=== PATIENT | male | born 1950 | race Caucasian/White ===

== ENCOUNTER 2018-07-18 15:37 | Inpatient (IN) | payer OTHER ==
[~2018-07-18] VITALS: Ht 175.3 cm; Wt 44.9 kg
[2018-07-18 15:40] VITALS: BP 90/54
--- NOTE | 2018-07-18 15:40 | NUR ---
PT BIBA TO BED 11
--- NOTE | 2018-07-18 15:50 | NUR ---
xray at bedside
--- NOTE | 2018-07-18 16:00 | NUR ---
67 YO M BIBA BLS CARE W/ C/O HEMOPTYSIS X 2 DAYS, SPUTUM SAMPLE AT BEDSIDE. LUNG SOUNDS COARSE AND DIMINISHED BILAT. W/ CRACKLES BL BASES. 91-93%% ON RA. DENIES CP, SOB, NVD. DENIES PAIN. PT STATES THAT WHEN HE COUGHS DEEPLY, THAT IS WHEN HE HAS TO SPIT THE BLOOD INTO A TISSUE OR CUP. PT DENIES PAIN. PT STATES THAT THIS MAY HAVE HAPPENED BEFORE W/ DX HIV. AAOX4, GCS 15, CMS INTACT. PT WEARS DIAPERS, HAS LEFT LEG AMPUTATION. ABD SOFT, NON-TENDER. LAST BM LESS THAN 1 HOUR AGO, DENIES ANY ISSUES W/ URINE/BM. ER MD NOTIFIED OF PT STATUS. PT NEEDS MET, SAFETY PRECAUTIONS IN PLACE. WILL CONTINUE TO MONITOR.
--- NOTE | 2018-07-18 16:04 | NUR ---
spoke to the nurse from the facility that sent the pt over and eceived report.
[2018-07-18] MEDS ORDERED: FURO-570 PO (16:28)
[2018-07-18] MEDS ORDERED: [UNRECOGNIZED DRUG - CODE] PO (16:28)
[2018-07-18] MEDS ORDERED: MULT15LI1 GT (16:28)
[2018-07-18] MEDS ORDERED: FERR325E14 PO (16:28)
[2018-07-18] MEDS ORDERED: FINA5TAB1 PO (16:28)
[2018-07-18] MEDS ORDERED: DRON2.5S4 PO (16:28)
[2018-07-18] MEDS ORDERED: INSU100S45 SUBQ (16:28)
[2018-07-18] MEDS ORDERED: LACT10SO1 PO (16:28)
[2018-07-18] MEDS ORDERED: SULF-59 PO (16:28)
[2018-07-18] MEDS ORDERED: TRAZ-343 PO (16:28)
[2018-07-18] MEDS ORDERED: QUET25TA PO (16:28)
[2018-07-18] MEDS ORDERED: POTA10TE30 PO (16:28)
[2018-07-18] MEDS ORDERED: ABAC1TAB2 PO (16:28)
[2018-07-18] MEDS ORDERED: GABA100C PO (16:28)
[2018-07-18] MEDS ORDERED: DOCU250S85 PO (16:28)
[2018-07-18] MEDS ORDERED: ALBU3SOL83 IH (16:28)
--- NOTE | 2018-07-18 17:09 | NUR ---
pt providing urine sample at this time via bedside urinal. safety precautions in place. will conitnue to monitor.
[2018-07-18 17:18] LABS: BASOPHILS % (AUTO) 0.4 % (0.0-2.0); EOSINOPHILS % (AUTO) 0.3 % (0.0-4.0); HEMATOCRIT 40.2 % (36-52); HEMOGLOBIN 12.5 g/dL (12.0-18.0); LYMPHOCYTES # (AUTO) 0.8 K/uL (2.0-11.5); MEAN CORPUSCULAR HEMOGLOBIN 30 pg (27-31); MEAN CORPUSCULAR HGB CONC 31 g/dL (33-37); MEAN CORPUSCULAR VOLUME 97.5 fL (80-94); MONOCYTES # (AUTO) 0.6 K/uL (0.8-1.0); MONOCYTES % (AUTO) 12.5 % (1.7-9.3); NEUTROPHILS # (AUTO) 3.4 K/uL (1.8-7.7); NEUTROPHILS % (AUTO) 69.8 % (42.2-75.2); PLATELET COUNT (AUTO) 82 K/uL (140-450); RED BLOOD CELL COUNT(AUTO) 4.12 MIL/uL (4.20-6.10); RED CELL DISTRIBUTION WIDTH 17.4 % (11.6-13.7); WHITE BLOOD COUNT (AUTO) 4.8 K/uL (4.8-10.8)
[2018-07-18] MEDS ORDERED: LEVOFLOXACIN 500 MG/D5W PREMIX 100 ML IV ONE (17:40)
[2018-07-18 17:49] LABS: BILIRUBIN,URINE NEGATIVE (NEGATIVE); BLOOD, URINE 1+ (NEGATIVE); COLOR,URINE YELLOW (YELLOW); LEUKOCYTE ESTERASE ,URINE NEGATIVE (NEGATIVE); NITRITE, URINE NEGATIVE (NEGATIVE); UGLUCOSE 3+ (NEGATIVE)
[2018-07-18 17:50] LABS: APPEARANCE,URINE SLIGHTLY CLOUDY (CLEAR)
[2018-07-18 17:52] LABS: RBC,URINE 0-5 (RARE) /HPF (0-5); WBC,URINE 0-5 (RARE) /HPF (0-5)
[2018-07-18] MEDS ORDERED: ACETAMINOPHEN 325 MG TAB PO PRN (18:00)
[2018-07-18] MEDS ORDERED: DOCUSATE SODIUM 100 MG GELCAP PO PRN (18:00)
[2018-07-18] MEDS ORDERED: ONDANSETRON 4 MG/2 ML VIAL IM/IVP PRN (18:00)
[2018-07-18 18:04] LABS: ANION GAP 6.3 (8-16); CARBON DIOXIDE 32.2 mmol/L (21-32); CREATININE 1.6 mg/dL (0.7-1.3); POTASSIUM 4.5 mmol/L (3.5-5.1)
[2018-07-18 18:10] LABS: ALBUMIN 2.5 g/dL (3.4-5.0); TOTAL BILIRUBIN 0.6 mg/dL (0.0-1.0)
--- NOTE | 2018-07-18 18:10 | NUR ---
pt aware of admit at this time, w/ er md flor at pt bedside informing him of dx status. pt needs met, safety precautions in place. will continue to monitor.
[2018-07-18 18:20] LABS: BARBITURATE, URINE NEG. ng/ml (NEG <=200); BENZODIAZEPINE, URINE NEG. ng/mL (NEG <=200); CANNABINOID, URINE POS. ng/mL (NEG <=50); COCAINE, URINE NEG. ng/mL (NEG <=300); OPIATE, URINE NEG. ng/mL (NEG <=2000); PHENCYCLIDINE SCREEN,URINE NEG. ng/mL (NEG <=25)
--- NOTE | 2018-07-18 18:44 | NUR ---
PT TAKEN TO TELE FLOOR BY RN IFEOMA AND EMT DOMINGA
[2018-07-18 18:50] VITALS: BP 99/65
--- NOTE | 2018-07-18 18:50 | NUR ---
Patient will be admitted to care of [facility]. Admitted to Tele. Will go to room 118. Belongings list completed. Report to RASHEED Ferguson.
[2018-07-18 19:03] LABS: CHOL/HDL RATIO 3.9 (1-4.5); PHOSPHORUS 4.1 mg/dL (2.5-4.9)
[2018-07-18 19:04] LABS: THYROID STIMULATING HORMONE 4.49 uIU/mL (0.34-3.74)
--- NOTE | 2018-07-18 19:35 | NUR ---
ENDORSEMENT GIVEN TO ACCELERATOR TECHNICIAN NURSE. PATIENT IS STABLE AT THIS TIME
--- NOTE | 2018-07-18 19:35 | NUR ---
RECEIVED BEDSIDE REPORT FROM RASHEED RUIZ, PATIENT IN BED, ON RA, NO SIGNS OF ACUTE DISTRESS, DENIES PAIN. IV IN LEFT AC 20 G, INFUSING NS, DRESSING INTACT, PATENT. NOTED WOUNDS ON LEFT BELOW THE KNEE AMPUTATION. SCABIES LOCATED THROUGHOUT UPPER AND LOWER EXTREMITIES. EXPLAINED PLAN OF CARE UPDATED BORED WILL CONTINUE TO MONITOR.
[2018-07-18] MEDS: NACL 0.9% 1,000 ML IV SCH (19:38)
[2018-07-18] MEDS: MORPHINE SULFATE 2 MG/ML SYR IVP PRN (22:28)
--- NOTE | 2018-07-18 22:29 | NUR ---
PATIENT C/O SEVERE PAIN 10/10 ON LEFT BKA. MEDICATED WITH MORPHINE. CLEANSED 3 INCISION WOUNDS WITH NS, PAT DRY, PLACED DRESSING ON. PICTURE TAKEN AND PLACE IN CHART. MRSA SCREEN COLLECTED AND SENT TO LAB.
[2018-07-19] VITALS: BP 114/68
--- NOTE | 2018-07-19 | NUR ---
V/S TAKEN, PATIENT DENIES PAIN, WILL CONTINUE TO MONITOR.
--- NOTE | 2018-07-19 02:12 | NUR ---
CALL FROM LAB, SPOKE WITH MILY, TROPONIN [phone]. DR OLVERA AWARE. NO NEW ORDERS AT THIS TIME
[2018-07-19] MEDS: MORPHINE SULFATE 2 MG/ML SYR IVP PRN (02:58)
--- NOTE | 2018-07-19 02:58 | NUR ---
PATIENT C/O SEVERE PAIN IN LEG, MEDICATED WITH MORPHINE.
[2018-07-19] MEDS ORDERED: traZODone 50 MG TAB PO SCH ×4 (03:30→21:00)
[2018-07-19 04:00] VITALS: BP 122/64
--- NOTE | 2018-07-19 04:01 | NUR ---
PATIENT STATED HE HAS A BOIL ON LEFT ARM, DRESSING AND GAUZE ARE APPLIED. PATIENT STATES ITS NOT OPEN AND HAS NOT OPENED YET.
[2018-07-19] MEDS ORDERED: PIPERACILLIN/TAZOBACTAM 2.25 GM VIAL IV ONE (05:32)
[2018-07-19] MEDS ORDERED: VANCOMYCIN PER PHARMACY MC PRN (05:40)
[2018-07-19] MEDS: PIPER/TAZO 2.25GM/D5W PREMIX 50 ML IV SCH ×4 (05:40→23:43)
[2018-07-19] MEDS ORDERED: DEXTROSE 50% 50 ML SYR IVP PRN (05:50)
[2018-07-19] MEDS ORDERED: INSULIN LISPRO SLIDING SCALE 100 UNITS/ML VIAL SUBQ PRN (05:50)
[2018-07-19] MEDS ORDERED: VANCOMYCIN 1GM/DEXT 5% PREMIX 200 ML IV SCH (06:00)
[2018-07-19] MEDS ORDERED: ALBUTEROL SULFATE/IPRATROPIU 3 ML SOL IH PRN (06:10)
[2018-07-19 06:20] LABS: T4 (THYROXINE) 5.4 ug/dL (4.5-12.0)
[2018-07-19] MEDS ORDERED: VANCOMYCIN 1,000 MG VIAL ONE (06:52)
[2018-07-19] MEDS: FAMOTIDINE 20 MG TAB PO SCH (06:53)
[2018-07-19] MEDS: BLOOD GLUCOSE MONITORING 1 DEV DEV FS SCH ×4 (06:53→20:31)
[2018-07-19] MEDS: ALBUTEROL SULFATE/IPRATROPIU 3 ML SOL IH SCH ×3 (07:00→19:18)
--- NOTE | 2018-07-19 07:00 | NUR ---
BLOOD GLUCOSE 101, PEPCID GIVEN, CALLED PHARMACY NO ANSWER, CALLED DR DOWELL TO ASKED IF CAN MIX VANCO IN 250 ML DEXTROSE, TOLD OKAY TO WAIT FOR PHARMACY TO MIX MEDICATION AND GIVEN, WILL ENDORSE TO DAY SHIFT.
--- NOTE | 2018-07-19 07:29 | NUR ---
ENDORSED PATIENT TO DAY SHIFT NURSE. PATIENT STABLE.
--- NOTE | 2018-07-19 07:30 | NUR ---
RECEIVED BEDSIDE REPORT FROM INTERNAL MEDICINE NURSE NURSE. PATIENT AAOX4. PATIENT ON ROOM AIR, NO DISTRESS NOTED. SKIN WOUNDS ON L LEG. IDA DRESSING INTACT, INTERNAL MEDICINE NURSE NURSE STATED PATIENT STATED HE HAS BOIL ON ARM. LEFT BKA. PATIENT AMBULATES WITH WALKER. PATIENT IS CONTINENT WITH BEDSIDE URINAL. IV ON L AC 20 G INFUSING NS AT 70. IV CLEAN DRY AND INTACT. BED IN LOW POSITION, CALL LIGHT WITHIN REACH. WILL CONTINUE TO MONITOR.
--- NOTE | 2018-07-19 07:55 | NUR ---
PATIENT HAS BEEN SCREENED AND CATEGORIZED HIGH NUTRITION RISK. PATIENT WILL BE SEEN WITHIN 1-2 DAYS OF ADMISSION. 07/19/18-07/20/[address]
[2018-07-19 08:00] VITALS: BP 123/72
--- NOTE | 2018-07-19 08:31 | NUR ---
PATIENT PICKED UP FOR CT WITHOUT CONTRAST. PATIENT ASSISTED TO WHEELCHAIR 2 PERSON ASSIST. PATIENT TOLERATED WELL. WILL MONITOR WHEN PATIENT RETURNS TO UNIT. VITAL SIGNS STABLE.
[2018-07-19] MEDS ORDERED: ABACAVIR SULFATE PO SCH (09:00)
[2018-07-19] MEDS ORDERED: NON-FORMULARY ITEM (Lactulose 30 ML) PO SCH (09:00)
[2018-07-19] MEDS ORDERED: LAMIVUDINE PO SCH (09:00)
[2018-07-19] MEDS: LACTULOSE 20 GM/30 ML UDC PO SCH (09:00)
[2018-07-19] MEDS: HYDROcodone/APAP 7.5/325 MG 1 TAB PO PRN (09:26)
[2018-07-19] MEDS: MULTIVITAMIN/MINERALS 1 TAB PO SCH (09:26)
[2018-07-19] MEDS: DOCUSATE SODIUM 250 MG GELCAP PO SCH (09:27)
[2018-07-19] MEDS: GABAPENTIN 100 MG CAP PO SCH (09:27)
[2018-07-19] MEDS: FINASTERIDE 5 MG TAB PO SCH (09:28)
[2018-07-19] MEDS: SULFAMETH/TRIMETH DS 800/160MG 1 TAB PO SCH (09:28)
[2018-07-19] MEDS: LACTOBACILLUS RHAMNOSUS GG 1 EACH CAP PO SCH (09:28)
[2018-07-19] MEDS: FERROUS SULFATE 325 MG TABEC PO SCH (09:29)
[2018-07-19] MEDS: CYANOCOBALAMIN 100 MCG TAB PO SCH (09:29)
--- NOTE | 2018-07-19 09:32 | NUR ---
ADMINISTERED SCHEDULED MEDS. PATIENT TOLERATED WELL. WILL CONTINUE TO MONITOR.
[2018-07-19] MEDS ORDERED: ABACAVIR PO SCH (10:50)
[2018-07-19] MEDS ORDERED: LAMIVUDI PO SCH (10:50)
[2018-07-19] MEDS ORDERED: DOLUTEGRAVIR PO SCH (10:50)
[2018-07-19] MEDS ORDERED: SULF-59 PO (11:00)
[2018-07-19] MEDS ORDERED: FURO-570 PO (11:00)
[2018-07-19] MEDS ORDERED: FERR325E14 PO (11:00)
[2018-07-19] MEDS ORDERED: DOCU250S85 PO (11:00)
[2018-07-19] MEDS ORDERED: GABA100C PO (11:00)
[2018-07-19] MEDS ORDERED: MULT15LI1 PO (11:00)
[2018-07-19] MEDS ORDERED: DRON2.5S4 PO (11:00)
[2018-07-19] MEDS ORDERED: TRAZ-343 PO (11:00)
[2018-07-19] MEDS ORDERED: ABAC1TAB15 PO (11:01)
[2018-07-19] MEDS ORDERED: NON-FORMULARY ITEM (Dronabinol 2.5 MG) PO SCH (11:05)
--- NOTE | 2018-07-19 11:09 | NUR ---
WOUND CARE EVALUATION NOTE: REASON FOR EVALUATION: LEFT BKA WOUNDS SKIN ASSESSMENT DONE WITH ON THIS 67 Y/O MALE PT ADMITTED FROM [facility] TO [facility] WITH INITIAL DX OF HEMOPTYSIS. PAST MEDICAL HX INCLUDES HTN, DM, CVA, HIV AND LEFT BKA. ALL ABOVE INFORMATION OBTAINED FROM ADMISSION H&P. AND PT. PT. HAS BEEN FOLLOW UP WITH [facility] [place]. PT HAS MULTIPLE SMALL SKIN LESIONS ALL OVER HIS BODY, ARMS AND LEGS. PT. IS AAX4 STATED THAT HE HAD LEFT BKA SURGERY FEW MONTHS BACK AND WOUND HAS NOT HEALING RIGHT. NEW SKIN LESIONS MAY DEVELOPED 2/2 HIV. PLAN OF CARE DISCUSSED WITH PRIMARY RN. AND PT. PT. VERBALIZES UNDERSTAND. INTEGUMENTARY: -SCALP MULTIPLE DRY SCABS -LEFT UPPER EAR OUTLET PARTIALLY MISSED WITH OLD HEALED SCAR -LEFT FOREARM LESION WITH PARTIAL THICKNESS LOSS OF SKIN 2X2X0.1 CM, WOUND BED IS RED AND MOIST, NO ODOR -LEFT BELOW KNEE CAP OPEN LESION WITH PARTIAL THICKNESS LOSS OF SKIN 2X2X0.1 CM, RAMOS WOUNDS SKIN INTACT WITH ERYTHEMA -LEFT BKA STUMP SURGICAL WOUNDS WITH MULTIPLES PARTIAL THICKNESS LOSS OF SKIN, LARGEST TO MEDIAL AREA 2X4X0.2CM, NO ODOR, RAMOS WOUNDS SKIN INTACT -LEFT MEDIAL THIGH LESION PARTIAL THICKNESS LOSS OF SKIN, LARGEST TO MEDIAL AREA 1X1X0.1CM, NO ODOR, RAMOS WOUNDS SKIN INTACT RECOMMENDATIONS: -CLEANSE LEFT STUMP SURGICAL WOUND WITH NS. PAT DRY APPLY SILVASORB GEL COVER WITH DRY DRESSING QD AND PRN IF SOILING -CLEANSE LESIONS TO LEFT ARM AND LEFT MEDIAL THIGH WITH NS. PAT DRY APPLY SILVASORB GEL COVER WITH DRY DRESSING QD AND PRN IF SOILING -OFFLOAD LEFT STUMP BY PLACING PILLOWS UNDER CALVES UNLESS OTHERWISE CONTRAINDICATED -PRESSURE REDISTRIBUTION SURFACE THERAPY -TURN AND REPOSITION Q2H, OFFLOAD SACRALCOCCYX BY TURNING RIGHT AND LEFT -CONTINUE TO FOLLOW RD RECOMMENDATIONS ALL ABOVE RECOMMENDATIONS DISCUSSED WITH PRIMARY RN WILL FOLLOW UP PT Q7-10 DAYS. PLEASE CONTACT WOUND CARE NURSE FOR ANY QUESTION AND CHANGE OF WOUND CONDITION.
[2018-07-19] MEDS ORDERED: FUROSEMIDE 40 MG TAB PO SCH (11:10)
[2018-07-19 12:00] VITALS: BP 124/74
[2018-07-19] MEDS ORDERED: fentaNYL 0.05 MG/ML VIAL ONE (12:39)
[2018-07-19] MEDS ORDERED: MIDAZOLAM 2 MG/2 ML VIAL ONE (12:40)
--- NOTE | 2018-07-19 12:53 | NUR ---
PATIENT PICKED UP FOR CT NEEDLE BIOPSY VIA GURNEY. WILL MONITOR WHEN PATIENT RETURNS TO UNIT.
[2018-07-19] MEDS: NACL 0.9% 1,000 ML IV SCH ×2 (12:54→23:49)
--- NOTE | 2018-07-19 13:25 | NUR ---
07/19/18 RD INITIAL ASSESSMENT COMPLETED PLEASE REFER TO NUTRITION ASSESSMENT UNDER CARE ACTIVITY FOR ESTIMATED NUTRITIONAL NEEDS. 1. CONTINUE CARDIAC DIET TOLERATED 2. IF PO INTAKE IS <50% RECOMMEND REGULAR DIET 3. RECOMMEND ENSURE MAX TID 4. ENCOURAGE INCREASING PO INTAKE 5. RD TO FOLLOW-UP 3-5 DAYS, MODERATE RISK AZAM TOTH RD
[2018-07-19] MEDS ORDERED: LIDOCAINE 1% 500 MG/50 ML VIAL ONE (13:32)
--- NOTE | 2018-07-19 13:50 | NUR ---
PATIENT BACK FROM CT NEEDLE BIOPSY. PATIENT IN STABLE CONDITION, NO DISTRESS NOTED. PATIENT SPEAKING ON CELL PHONE. WILL CONTINUE TO MONITOR.
[2018-07-19] MEDS ORDERED: LIDOCAINE MPF 2% 100 MG/5 ML VIAL INJ ONE (13:55)
--- NOTE | 2018-07-19 14:48 | NUR ---
Clinical Lab Specialist Note: Per Rashad at [facility] , patient is on a 7 day bed hold. Rashad isn't sure if patient is one of their intermediate project manager patients. She stated prior to patient's admission at [facility], [facility] signed a letter of agreement (ROLANDO) with [employer] (health insurance). Rashad reported patient is self responsible and she is going to ask their Medical Records dept to check if patient has an existing Advance Directive. I provided Rashad with case management/social insurance analyst fax number and my contact information.
[2018-07-19 15:50] LABS: BASOPHILS % (AUTO) 0.8 % (0.0-2.0); EOSINOPHILS % (AUTO) 0.9 % (0.0-4.0); HEMATOCRIT 36.6 % (36-52); HEMOGLOBIN 11.1 g/dL (12.0-18.0); LYMPHOCYTES # (AUTO) 0.7 K/uL (2.0-11.5); LYMPHOCYTES % (AUTO) 17.9 % (20.5-51.1); MEAN CORPUSCULAR HEMOGLOBIN 30 pg (27-31); MEAN CORPUSCULAR HGB CONC 31 g/dL (33-37); MEAN CORPUSCULAR VOLUME 99.2 fL (80-94); MONOCYTES # (AUTO) 0.6 K/uL (0.8-1.0); NEUTROPHILS # (AUTO) 2.5 K/uL (1.8-7.7); NEUTROPHILS % (AUTO) 65.4 % (42.2-75.2); PLATELET COUNT (AUTO) 76 K/uL (140-450); RED BLOOD CELL COUNT(AUTO) 3.68 MIL/uL (4.20-6.10); WHITE BLOOD COUNT (AUTO) 3.9 K/uL (4.8-10.8)
[2018-07-19 16:00] VITALS: BP 106/67
[2018-07-19 16:03] LABS: MAGNESIUM 1.8 mg/dL (1.8-2.4); PHOSPHORUS 3.8 mg/dL (2.5-4.9)
[2018-07-19 16:12] LABS: ANION GAP 9.9 (8-16); CARBON DIOXIDE 28.7 mmol/L (21-32); CREATININE 1.4 mg/dL (0.7-1.3); POTASSIUM 4.6 mmol/L (3.5-5.1)
[2018-07-19] MEDS ORDERED: NICOTINE TRANSD SYS 14 MG/24 HR PATCH TD SCH (17:00)
--- NOTE | 2018-07-19 17:19 | NUR ---
PATIENT REFUSED NICOTINE PATCH. STATED HE "DID NOT WANT TO RISK THE SIDE EFFECTS OF DIZZINESS AND NAUSEA." PATIENT STATED HE HAD A REACTION TO THE PATCH ABOUT 5 YEARS AGO AND WENT TO URGENT CARE. PATIENT REFUSES NICOTINE PATCH EVEN AFTER MED EDUCATION.
[2018-07-19] MEDS: oxyCODONE 5 MG TAB PO PRN (18:05)
--- NOTE | 2018-07-19 19:24 | NUR ---
GAVE BEDSIDE REPORT TO CREDIT ADMINISTRATION OFFICER NURSE. PATIENT ENDORSED IN STABLE CONDITION.
--- NOTE | 2018-07-19 19:25 | NUR ---
RECEIVED FROM AM RN IN BED AWAKE AND ALERT. NO SOB. DENIES ANY PAIN AT THIS TIME. SITTING AT THE EDGE OF BE AND USING URINAL. ABLE TO VERBALIZE NEEDS WELL. GOOD AFFECT. CALL LIGHT WITH IN REACH. GOOD AFFECT. DX. OF PNA AND HEMOPTYSIS. IVF SITE INTACT AND NO INFILTRATION. GOOD BLOOD RETURN.
[2018-07-19] MEDS: QUEtiapine FUMARATE 25 MG TAB PO SCH (20:27)
[2018-07-19] MEDS: traZODone 50 MG TAB PO SCH (20:27)
[2018-07-19 23:43] VITALS: BP 114/66
--- NOTE | 2018-07-20 | NUR ---
VITAL SIGNS TAKEN. NO COMPLAINTS DONE. INFLUENZA A AND B ANTIGEN SWAB TAKEN AND SUBMITTED TO LABORATORY.
--- NOTE | 2018-07-20 02:57 | NUR ---
SLEEPING WELL THIS SHIFT.
[2018-07-20 04:03] VITALS: BP 124/68
[2018-07-20] MEDS: oxyCODONE 5 MG TAB PO PRN ×2 (04:03→10:15)
--- NOTE | 2018-07-20 04:06 | NUR ---
PT. AWAKE AT THIS TIME AND SITTING AT THE EDGE OF HIS BED. REQUESTED FOR PAIN RELIEVER. MEDICATED ORDERED. A/O X 4.
[2018-07-20] MEDS: PIPER/TAZO 2.25GM/D5W PREMIX 50 ML IV SCH ×4 (05:49→23:36)
[2018-07-20] MEDS: BLOOD GLUCOSE MONITORING 1 DEV DEV FS SCH ×4 (06:02→21:01)
[2018-07-20 06:18] LABS: BASOPHILS % (AUTO) 0.8 % (0.0-2.0); EOSINOPHILS % (AUTO) 0.9 % (0.0-4.0); HEMATOCRIT 41.3 % (36-52); LYMPHOCYTES # (AUTO) 0.4 K/uL (2.0-11.5); LYMPHOCYTES % (AUTO) 12.3 % (20.5-51.1); MEAN CORPUSCULAR HEMOGLOBIN 31 pg (27-31); MEAN CORPUSCULAR HGB CONC 32 g/dL (33-37); MEAN CORPUSCULAR VOLUME 97.1 fL (80-94); MONOCYTES # (AUTO) 0.3 K/uL (0.8-1.0); MONOCYTES % (AUTO) 9.5 % (1.7-9.3); NEUTROPHILS # (AUTO) 2.7 K/uL (1.8-7.7); NEUTROPHILS % (AUTO) 76.5 % (42.2-75.2); PLATELET COUNT (AUTO) 82 K/uL (140-450); RED BLOOD CELL COUNT(AUTO) 4.26 MIL/uL (4.20-6.10); RED CELL DISTRIBUTION WIDTH 17.5 % (11.6-13.7); WHITE BLOOD COUNT (AUTO) 3.5 K/uL (4.8-10.8)
[2018-07-20] MEDS: FAMOTIDINE 20 MG TAB PO SCH (06:22)
[2018-07-20 06:41] LABS: ANION GAP 9.8 (8-16); CARBON DIOXIDE 28.8 mmol/L (21-32); CREATININE 1.3 mg/dL (0.7-1.3); POTASSIUM 3.6 mmol/L (3.5-5.1)
[2018-07-20 06:48] LABS: MAGNESIUM 1.8 mg/dL (1.8-2.4)
--- NOTE | 2018-07-20 07:29 | NUR ---
ENDORSED TO THE NEXT RN FOR CONTINUITY OF CARE. AWAKE AND ALERT. VERBALIZES WELL.
--- NOTE | 2018-07-20 07:30 | NUR ---
RECEIVED PT ON BED AAOX4. NO SOB NOTED. NO C/O PAIN AT THIS TIME. IV TO LT FOREARM PATENT AND INTACT. CHEST, DIMINISHED AIR ENTRY TO THE BASES, WITH 02 AT 2LPM VIA NASAL CANNULA, O2 SATS AT 92%. ABDOMEN SOFT, BOWEL SOUNDS PRESENT. WITH LEFT BKA, WITH 3 SMALL WOUNDS NOTED, DRESSING DRY AND INTACT. INSTRUCTED PT TO CALL FOR ASSISTANCE, CALL LIGHT WITHIN REACH, PT VERBALIZED UNDERSTANDING.
[2018-07-20] MEDS: ALBUTEROL SULFATE/IPRATROPIU 3 ML SOL IH SCH ×3 (07:43→19:21)
[2018-07-20 08:00] VITALS: BP 128/71
[2018-07-20 08:20] LABS: HEPATITIS A ANTIBODY IGM Negative (Negative); HEPATITIS B SURFACE ANTIBODY Reactive (.); HEPATITIS B SURFACE ANTIGEN Negative (Negative)
[2018-07-20] MEDS ORDERED: VANCOMYCIN 750 MG in DEXTROSE 5% 250 ML IV SCH (09:00)
[2018-07-20] MEDS: NICOTINE TRANSD SYS 14 MG/24 HR PATCH TD SCH (09:00)
[2018-07-20] MEDS: FINASTERIDE 5 MG TAB PO SCH (10:13)
[2018-07-20] MEDS: SULFAMETH/TRIMETH DS 800/160MG 1 TAB PO SCH (10:14)
[2018-07-20] MEDS: LACTULOSE 20 GM/30 ML UDC PO SCH (10:14)
[2018-07-20] MEDS: CYANOCOBALAMIN 100 MCG TAB PO SCH (10:14)
[2018-07-20] MEDS: MULTIVITAMIN/MINERALS 1 TAB PO SCH (10:14)
[2018-07-20] MEDS: FERROUS SULFATE 325 MG TABEC PO SCH (10:15)
[2018-07-20] MEDS: DOCUSATE SODIUM 250 MG GELCAP PO SCH (10:15)
[2018-07-20] MEDS: GABAPENTIN 100 MG CAP PO SCH (10:15)
[2018-07-20] MEDS: LACTOBACILLUS RHAMNOSUS GG 1 EACH CAP PO SCH (10:16)
[2018-07-20] MEDS: FUROSEMIDE 40 MG TAB PO SCH (10:16)
--- NOTE | 2018-07-20 14:00 | NUR ---
PT SEEN BY DR. BARAHONA WITH NO ORDERS.
[2018-07-20 16:00] VITALS: BP 104/59
--- NOTE | 2018-07-20 16:30 | NUR ---
SPUTUM SPECIMEN COLLECTED AND SENT TO LAB. SPUTUM DARK RED IN COLOR NOTED.
--- NOTE | 2018-07-20 19:00 | NUR ---
PT AWAKE. NO SOB NOTED. NO COMPLAINTS MADE. WILL ENDORSE TO NEXT SHIFT FOR CONTINUITY OF CARE.
--- NOTE | 2018-07-20 19:15 | NUR ---
RECEIVED PT FROM YOBANY RN PT IS AAOX4 WITH MULTIPLES SCABS AND WOUND ON EXTREMITIES, , LEFT BKA IV ;ON LEFT ARM INFUSING WELL TKO NOT HEMOPTYSIS NOTED AT THIS TIME
--- NOTE | 2018-07-20 19:32 | NUR ---
RECEIVED PATIENT ON ROOM AIR, PULSE OX SAT 96%. SCHEDULED BREATHING TREATMENT ADMINISTERED. TOLERATED TX WELL, NO ADVERSE SIDE EFFECTS. NO RESPIRATORY DISTRESS NOTED AT THIS TIME. WILL CONTINUE TO MONITOR.
[2018-07-20] MEDS: HYDROcodone/APAP 7.5/325 MG 1 TAB PO PRN (20:55)
[2018-07-20] MEDS: QUEtiapine FUMARATE 25 MG TAB PO SCH (20:57)
[2018-07-20] MEDS: traZODone 50 MG TAB PO SCH (20:57)
--- NOTE | 2018-07-20 22:00 | NUR ---
DR CHANG IS HERE AND SEE THE PT ORDER TO FOLLOW PROTOCOL ISOLATION AIRBORNE AND ALSO ORDERS TO FOLLOW TO R/O TB AND PT WILL BE TRANSFER TO ROOM 114
[2018-07-21] VITALS: BP 115/68
--- NOTE | 2018-07-21 00:55 | NUR ---
2200 PT UNABLE TO GIVE SPUTUM SAMPLE. CUP AT BEDSIDE. PT ENCOURAGED TO GIVE SPUTUM SAMPLE.
--- NOTE | 2018-07-21 02:39 | NUR ---
PT MO;NITORING CLOSE UNABLE TO GIVE SPUTUMAT THIS TIME,
--- NOTE | 2018-07-21 04:00 | NUR ---
SPONGE BATH GIVEN LINEN CHANGED DENIES ANY PAIN AT THIS THIS TIME , UNABLE TO GIVE SPUTUM
[2018-07-21] MEDS: PIPER/TAZO 2.25GM/D5W PREMIX 50 ML IV SCH ×4 (05:34→23:11)
[2018-07-21] MEDS: BLOOD GLUCOSE MONITORING 1 DEV DEV FS SCH ×4 (05:47→20:43)
[2018-07-21] MEDS: oxyCODONE 5 MG TAB PO PRN ×3 (05:48→20:43)
--- NOTE | 2018-07-21 05:56 | NUR ---
RESPIRATORY THERAPY INDUCE TO GET SPUTUM AND GOT IT AND SENT TO LAB SAMPLE # 1
[2018-07-21] MEDS: FAMOTIDINE 20 MG TAB PO SCH (06:38)
--- NOTE | 2018-07-21 06:40 | NUR ---
BLOOD SUGAR TEST 75 AFTER PAIN MEDIC GIVEN PT GETTING SLEEP
[2018-07-21 07:07] LABS: BASOPHILS % (AUTO) 1.3 % (0.0-2.0); EOSINOPHILS # (AUTO) 0.1 K/uL (0-0.4); EOSINOPHILS % (AUTO) 2.5 % (0.0-4.0); HEMATOCRIT 34.8 % (36-52); HEMOGLOBIN 10.9 g/dL (12.0-18.0); LYMPHOCYTES # (AUTO) 0.6 K/uL (2.0-11.5); LYMPHOCYTES % (AUTO) 22.7 % (20.5-51.1); MEAN CORPUSCULAR HEMOGLOBIN 30 pg (27-31); MEAN CORPUSCULAR HGB CONC 31 g/dL (33-37); MEAN CORPUSCULAR VOLUME 95.7 fL (80-94); MONOCYTES # (AUTO) 0.4 K/uL (0.8-1.0); MONOCYTES % (AUTO) 15.9 % (1.7-9.3); NEUTROPHILS # (AUTO) 1.5 K/uL (1.8-7.7); NEUTROPHILS % (AUTO) 57.6 % (42.2-75.2); PLATELET COUNT (AUTO) 82 K/uL (140-450); RED BLOOD CELL COUNT(AUTO) 3.64 MIL/uL (4.20-6.10); RED CELL DISTRIBUTION WIDTH 17.4 % (11.6-13.7); WHITE BLOOD COUNT (AUTO) 2.6 K/uL (4.8-10.8)
[2018-07-21 07:11] LABS: ANION GAP 7.9 (8-16); CARBON DIOXIDE 26.8 mmol/L (21-32); CREATININE 1.1 mg/dL (0.7-1.3); POTASSIUM 3.7 mmol/L (3.5-5.1)
[2018-07-21 07:16] LABS: MAGNESIUM 1.8 mg/dL (1.8-2.4); PHOSPHORUS 3.7 mg/dL (2.5-4.9)
--- NOTE | 2018-07-21 07:20 | NUR ---
RECEIVED BEDSIDE REPORT FROM RASHEED BARBER. PT STABLE, AWAKE, AND ALERT. NO SIGNS OF DISTRESS NOTED. DENIES PAIN. NO INFLAMMATION, REDNESS, OR SWELLING NOTED ON IV SITE. CALL MARTINEZ WITHIN REACH. BED IN LOW POSITION. SAFETY MEASURES IN PLACE. PLAN OF CARE REVIEWED.
[2018-07-21 08:00] VITALS: BP 109/74
[2018-07-21] MEDS: ALBUTEROL SULFATE/IPRATROPIU 3 ML SOL IH SCH ×3 (08:22→19:07)
[2018-07-21] MEDS: NICOTINE TRANSD SYS 14 MG/24 HR PATCH TD SCH (09:00)
[2018-07-21] MEDS: FINASTERIDE 5 MG TAB PO SCH (09:02)
[2018-07-21] MEDS: MULTIVITAMIN/MINERALS 1 TAB PO SCH (09:02)
[2018-07-21] MEDS: DOCUSATE SODIUM 250 MG GELCAP PO SCH (09:03)
[2018-07-21] MEDS: FUROSEMIDE 40 MG TAB PO SCH (09:05)
[2018-07-21] MEDS: LACTULOSE 20 GM/30 ML UDC PO SCH (09:08)
[2018-07-21] MEDS: SULFAMETH/TRIMETH DS 800/160MG 1 TAB PO SCH (09:08)
[2018-07-21] MEDS: FERROUS SULFATE 325 MG TABEC PO SCH (09:09)
[2018-07-21] MEDS: LACTOBACILLUS RHAMNOSUS GG 1 EACH CAP PO SCH (09:09)
[2018-07-21] MEDS: CYANOCOBALAMIN 100 MCG TAB PO SCH (09:09)
[2018-07-21] MEDS: GABAPENTIN 100 MG CAP PO SCH (09:09)
--- NOTE | 2018-07-21 09:14 | NUR ---
ADMINISTERED SCHEDULED MEDICATIONS, PT REFUSED NICOTINE PATCH. PT TOLERATED WELL. NO OTHER NEEDS AT THIS TIME.
--- NOTE | 2018-07-21 12:12 | NUR ---
ADMINISTERED SCHEDULED MEDICATION. PT TOLERATED WELL. NO OTHER NEEDS AT THIS TIME.
[2018-07-21] MEDS: NACL 0.9% 1,000 ML IV SCH ×2 (12:21→18:16)
--- NOTE | 2018-07-21 14:04 | NUR ---
SPECIMEN CUP PLACED AT PT BEDSIDE AND INFORMED PT NEED FOR SPUTUM SPECIMEN FOR [employer]. PT AWARE AND STATES HE UNDERSTANDS.
--- NOTE | 2018-07-21 15:00 | NUR ---
Received Triumeq 2 bottles from [facility] ([facility]), delivered from SNF. Meds inventoried with pt, then submitted to [facility] pharmacist. Radha Field, primary nurse notified.
[2018-07-21 16:00] VITALS: BP 114/74
--- NOTE | 2018-07-21 17:07 | NUR ---
BG 80, NO COVERAGE NEEDED. PT STABLE, AWAKE, AND ALERT.
--- NOTE | 2018-07-21 18:16 | NUR ---
ADMINISTERED SCHEDULED MEDICATION. PT TOLERATED WELL. NO OTHER NEEDS AT THIS TIME. WOUND CARE PROVIDED, DRESSINGS CHANGED.
--- NOTE | 2018-07-21 19:20 | NUR ---
ENDORSED PT TO PREDATORY HUNTER NURSE. PT STABLE, AWAKE, AND ALERT.
--- NOTE | 2018-07-21 19:21 | NUR ---
RECEIVED REPORT FROM DAY SHIFT NURSE JASE KEMP AT BEDSIDE. PT RESTING IN BED, AOX4, ON 2L/NC, WITH IV SITE ON LEFT FA #20G RUNNING NS @20ML/HR. DISCUSSED PLAN OF CARE AND PT VERBALIZED UNDERSTANDING. NO S/S OF RESPIRATORY DISTRESS OR DISCOMFORT NOTED AT THIS TIME. ON AIRBORNE PRECAUTIONS TO R/O TB, AND CONTACT PRECAUTIONS FOR MDRO. SKIN NON-INTACT, LEFT THIGH, LEFT BKA, LEFT BOIL OPEN WOUNDS. BED IN LOWEST POSITION, BED BREAKS ON, BOTH SIDE RAILS UP AND FALL PRECAUTIONS IN PLACE. BEDSIDE TABLE AND CALL LIGHT ARE WITHIN REACH. WILL CONTINUE TO MONITOR.
[2018-07-21 20:00] VITALS: BP 102/47
--- NOTE | 2018-07-21 20:00 | NUR ---
VITAL SIGNS TAKEN AND TOLERATED WELL. PT C/O PAIN 11/27- WILL MEDICATE. BLOOD GLUCOSE 148- NO INSULIN COVERAGE NEEDED. NO S/S OF RESPIRATORY DISTRESS OR DISCOMFORT NOTED AT THIS TIME. WILL CONTINUE TO MONITOR.
[2018-07-21] MEDS: QUEtiapine FUMARATE 25 MG TAB PO SCH (20:43)
[2018-07-21] MEDS: traZODone 50 MG TAB PO SCH (20:43)
--- NOTE | 2018-07-21 20:43 | NUR ---
SCHEDULED MEDICATION AND PAIN MEDICATION GIVEN AND TOLERATED WELL. NO S/S OF RESPIRATORY DISTRESS OR DISCOMFORT NOTED AT THIS TIME. WILL CONTINUE TO MONITOR.
--- NOTE | 2018-07-21 22:00 | NUR ---
PT RESTING IN BED. INSTRUCTED PT ON SPUTUM SAMPLE AND GAVE STERILE CUP. PT INSTRUCTED TO USE CALL LIGHT WHEN READY. NO S/S OF RESPIRATORY DISTRESS OR DISCOMFORT NOTED AT THIS TIME. WILL CONTINUE TO MONITOR.
--- NOTE | 2018-07-21 22:30 | NUR ---
SPOKE WITH PT AND HAS YET TO PRODUCE SPUTUM SAMPLE. PT STATED HE IS UNABLE. CALLED RT THOMAS AND SHE SAID SHE WOULD ASSIST PT. NO S/S OF RESPIRATORY DISTRESS OR DISCOMFORT NOTED AT THIS TIME. WILL CONTINUE TO MONITOR.
--- NOTE | 2018-07-21 23:11 | NUR ---
SCHEDULED MEDICATION ZOSYN GIVEN AND TOLERATED WELL. NO S/S OF RESPIRATORY DISTRESS OR DISCOMFORT NOTED AT THIS TIME. WILL CONTINUE TO MONITOR.
[2018-07-21] MEDS ORDERED: VANCOMYCIN PER PHARMACY MC PRN (23:20)
[2018-07-21] MEDS ORDERED: INFLUENZA VIRUS VACCINE QUAD 0.5 ML SYR IMVAC PRN (23:25)
[2018-07-22] VITALS: BP 95/53
[2018-07-22] MEDS ORDERED: VANCOMYCIN 1GM/DEXT 5% PREMIX 200 ML IV SCH
--- NOTE | 2018-07-22 | NUR ---
VITAL SIGNS TAKEN AND TOLERATED WELL. WILL CONTINUE TO ENCOURAGE PT TO PRODUCE SPUTUM SAMPLE. NO S/S OF RESPIRATORY DISTRESS OR DISCOMFORT NOTED AT THIS TIME. WILL CONTINUE TO MONITOR.
[2018-07-22] MEDS ORDERED: VANCOMYCIN 1,000 MG VIAL ONE (00:36)
--- NOTE | 2018-07-22 00:37 | NUR ---
SCHEDULED MEDICATION VANCOCIN GIVEN AND TOLERATED WELL. NO S/S OF RESPIRATORY DISTRESS OR DISCOMFORT NOTED AT THIS TIME. WILL CONTINUE TO MONITOR.
--- NOTE | 2018-07-22 00:55 | NUR ---
SPOKE WITH RT GUZMAN AND SHE HAS BEEN UNSUCCESSFUL WITH COLLECTING SPUTUM SAMPLE AND WILL TRY AGAIN. NO S/S OF RESPIRATORY DISTRESS OR DISCOMFORT NOTED AT THIS TIME. WILL CONTINUE TO MONITOR.
--- NOTE | 2018-07-22 02:00 | NUR ---
PT CONTINUES TO SLEEP IN BED. NO S/S OF RESPIRATORY DISTRESS OR DISCOMFORT NOTED AT THIS TIME. WILL CONTINUE TO MONITOR.
--- NOTE | 2018-07-22 04:00 | NUR ---
PT CONTINUES TO SLEEP IN BED. PT HAS NOT BEEN ABLE TO GIVE SPUTUM SAMPLE. RT THOMAS AWARE. NO S/S OF RESPIRATORY DISTRESS OR DISCOMFORT NOTED AT THIS TIME. WILL CONTINUE TO MONITOR.
[2018-07-22] MEDS: PIPER/TAZO 2.25GM/D5W PREMIX 50 ML IV SCH ×4 (05:07→23:19)
--- NOTE | 2018-07-22 05:07 | NUR ---
SCHEDULED MEDICATION ZOSYN GIVEN AND TOLERATED WELL. REMINDED TO GIVE SPUTUM SAMPLE. NO S/S OF RESPIRATORY DISTRESS OR DISCOMFORT NOTED AT THIS TIME. WILL CONTINUE TO MONITOR.
[2018-07-22] MEDS: BLOOD GLUCOSE MONITORING 1 DEV DEV FS SCH ×4 (06:00→21:17)
--- NOTE | 2018-07-22 06:00 | NUR ---
BLOOD GLUCOSE 75- ENCOURAGED PT TO DRINK SOME JUICE. NO INSULIN COVERAGE NEEDED. NO S/S OF RESPIRATORY DISTRESS OR DISCOMFORT NOTED AT THIS TIME. WILL CONTINUE TO MONITOR.
[2018-07-22] MEDS: FAMOTIDINE 20 MG TAB PO SCH (06:33)
--- NOTE | 2018-07-22 06:33 | NUR ---
SCHEDULED MEDICATION PEPCID GIVEN AND TOLERATED WELL. NO S/S OF RESPIRATORY DISTRESS OR DISCOMFORT NOTED AT THIS TIME. WILL CONTINUE TO MONITOR.
[2018-07-22] MEDS: ALBUTEROL SULFATE/IPRATROPIU 3 ML SOL IH SCH ×3 (06:50→19:40)
[2018-07-22 06:53] LABS: BASOPHILS % (AUTO) 0.9 % (0.0-2.0); EOSINOPHILS # (AUTO) 0.1 K/uL (0-0.4); EOSINOPHILS % (AUTO) 2.5 % (0.0-4.0); HEMATOCRIT 37.7 % (36-52); HEMOGLOBIN 11.8 g/dL (12.0-18.0); LYMPHOCYTES # (AUTO) 0.6 K/uL (2.0-11.5); LYMPHOCYTES % (AUTO) 20.1 % (20.5-51.1); MEAN CORPUSCULAR HEMOGLOBIN 30 pg (27-31); MEAN CORPUSCULAR HGB CONC 31 g/dL (33-37); MEAN CORPUSCULAR VOLUME 96.7 fL (80-94); MONOCYTES # (AUTO) 0.5 K/uL (0.8-1.0); MONOCYTES % (AUTO) 17.2 % (1.7-9.3); NEUTROPHILS # (AUTO) 1.8 K/uL (1.8-7.7); NEUTROPHILS % (AUTO) 59.3 % (42.2-75.2); PLATELET COUNT (AUTO) 110 K/uL (140-450); RED CELL DISTRIBUTION WIDTH 17.4 % (11.6-13.7)
--- NOTE | 2018-07-22 07:10 | NUR ---
RECEIVED BEDSIDE REPORT FROM SENIOR GRANTS OFFICER NURSE. PT IS AAOX4, ON 2L O2 NC. IV SITE ON LEFT FA #20G, PATENT AND INTACT, RUNNING NS AT 20ML/HR. ON AIRBORNE PRECAUTIONS TO R/O TB, AND CONTACT PRECAUTIONS FOR MDRO URINE. POC DISCUSSED, PT VERBALIZED UNDERSTANDING. SKIN NON-INTACT, LEFT THIGH, LEFT BKA, LEFT FA BOIL OPEN WOUNDS. BED IN LOWEST POSITION, BED BREAKS ON, BOTH SIDE RAILS UP AND FALL PRECAUTIONS IN PLACE. BEDSIDE TABLE AND CALL LIGHT ARE WITHIN REACH. WILL CONTINUE TO MONITOR.
--- NOTE | 2018-07-22 07:14 | NUR ---
ENDORSED PT CARE TO DAY SHIFT NURSE KYAW FOR CONTINUITY OF CARE.
[2018-07-22 07:21] LABS: ANION GAP 9.3 (8-16); CARBON DIOXIDE 28.8 mmol/L (21-32); CREATININE 1.2 mg/dL (0.7-1.3); POTASSIUM 4.1 mmol/L (3.5-5.1)
[2018-07-22 07:25] LABS: PHOSPHORUS 3.6 mg/dL (2.5-4.9)
[2018-07-22 08:00] VITALS: BP 101/63
[2018-07-22] MEDS: FUROSEMIDE 40 MG TAB PO SCH (09:00)
[2018-07-22] MEDS: NICOTINE TRANSD SYS 14 MG/24 HR PATCH TD SCH (09:00)
--- NOTE | 2018-07-22 09:00 | NUR ---
BMX1, FORMED, HARD BROWN STOOL. PT WAS CLEANED. CHANGED CHUX.
[2018-07-22] MEDS: LACTULOSE 20 GM/30 ML UDC PO SCH (10:02)
[2018-07-22] MEDS: DOCUSATE SODIUM 250 MG GELCAP PO SCH (10:03)
[2018-07-22] MEDS: SULFAMETH/TRIMETH DS 800/160MG 1 TAB PO SCH (10:03)
[2018-07-22] MEDS: MULTIVITAMIN/MINERALS 1 TAB PO SCH (10:03)
[2018-07-22] MEDS: GABAPENTIN 100 MG CAP PO SCH (10:03)
[2018-07-22] MEDS: FERROUS SULFATE 325 MG TABEC PO SCH (10:03)
[2018-07-22] MEDS: LACTOBACILLUS RHAMNOSUS GG 1 EACH CAP PO SCH (10:04)
[2018-07-22] MEDS: FINASTERIDE 5 MG TAB PO SCH (10:04)
[2018-07-22] MEDS: CYANOCOBALAMIN 100 MCG TAB PO SCH (10:04)
[2018-07-22] MEDS: TRIUMEQ 600-50-300 MG TAB PO SCH (10:16)
--- NOTE | 2018-07-22 11:36 | NUR ---
CALLED [facility] AND SPOKE WITH ADMITTING, REGARDING BED REQUEST FOR HIGHER LEVEL OF CARE AND FAXED ALL THE PAPER WORK TO [phone]
--- NOTE | 2018-07-22 12:27 | NUR ---
HERMILO FROM [facility] CALLED AND STATED NEEDS AUTHORIZATION FROM [facility], [place] AND ALSO REQUESTING CELL PHONE # OF DR GIANNI Luis, AND PROVIDED DR ARCHER'S PHONE #
[2018-07-22 13:05] LABS: HEPATITIS B CORE AB TOTAL Positive (Negative)
--- NOTE | 2018-07-22 13:23 | NUR ---
SPOKE WITH DR GIANNI Luis AND ACCEPTING DR WILL BE DR VELIA YUNG, CALLED [facility] AND SPOKE WITH YONATHAN ,STATED THE INSURANCE IS CLOSED FOR THE WEEKEND MOST PROBABLY ON TUESDAY .NOTIFIED DR GLOVER (RESIDENT)
[2018-07-22] MEDS: oxyCODONE 5 MG TAB PO PRN ×3 (14:03→23:19)
--- NOTE | 2018-07-22 15:30 | NUR ---
WOUND CARE DONE. SILVASORB GEL APPLIED TO LESIONS ON LEFT KNEE STUMP, LEFT THIGH AND LEFT FA. LEFT STUMP COVERED WITH GAUZE AND WRAPPED WITH VITALY. LEFT FA AND LEFT THIGH LESIONS WERE COVERED WITH ISLAND DRESSING. PT IS COOPERATIVE AND TOLERATED WELL.
[2018-07-22 16:00] VITALS: BP 102/66
--- NOTE | 2018-07-22 16:00 | NUR ---
PT IS TALKING ON THE PHONE, C/O PHANTOM PAIN, 12/27 WILL MEDICATE. NO S/S OF RESPIRATORY DISTRESS NOTED ON 2L O2 NC. Addendum: 07/22/18 at 1808 by Dwight Griffiths RN TIME WAS 1400
[2018-07-22] MEDS: VANCOMYCIN HCL 750 MG in DEXTROSE 5% 250 ML IV SCH (17:48)
--- NOTE | 2018-07-22 18:05 | NUR ---
ENCOURAGED PT TO DRINK THE ENSURE, EXPLAINED THE IMPORTANCE OF IT. PT VERBALIZED UNDERSTANDING, AND STATED WILL DRINK IT LATER.
--- NOTE | 2018-07-22 19:18 | NUR ---
ENDORSED PT CARE TO CORRECTIONAL MANAGER NURSE. PT IN STABLE CONDITION. RESTING IN BED.
[2018-07-22 20:00] VITALS: BP 106/60
[2018-07-22] MEDS: QUEtiapine FUMARATE 25 MG TAB PO SCH (21:27)
[2018-07-22] MEDS: traZODone 50 MG TAB PO SCH (21:27)
--- NOTE | 2018-07-22 21:27 | NUR ---
DUE MEDICATIONS GIVEN. PT TOLERATED WELL. ALL NEEDS MET AT THIS TIME. CALL LIGHT WITHIN REACH.
--- NOTE | 2018-07-23 | NUR ---
VS ARE WITHIN NORMAL LIMITS. ALL NEEDS MET AT THIS. WILL CONTINUE TO MONITOR.
--- NOTE | 2018-07-23 02:16 | NUR ---
PT SLEEPING. RESPIRATIONS ARE EQUAL AND UNLABORED. CALL LIGHT WITHIN REACH.
--- NOTE | 2018-07-23 05:10 | NUR ---
PT SLEEPING. RESPIRATIONS ARE EQUAL AND UNLABORED. CALL LIGHT WITHIN REACH.
[2018-07-23] MEDS: FAMOTIDINE 20 MG TAB PO SCH (06:27)
[2018-07-23] MEDS: PIPER/TAZO 2.25GM/D5W PREMIX 50 ML IV SCH (06:28)
[2018-07-23] MEDS: BLOOD GLUCOSE MONITORING 1 DEV DEV FS SCH ×4 (06:28→20:30)
[2018-07-23] MEDS: oxyCODONE 5 MG TAB PO PRN (06:35)
[2018-07-23] MEDS: ALBUTEROL SULFATE/IPRATROPIU 3 ML SOL IH SCH ×3 (06:47→19:00)
--- NOTE | 2018-07-23 07:04 | NUR ---
pt unable to produce sputum sample at this time
--- NOTE | 2018-07-23 07:26 | NUR ---
ENDORSED TO DAY SHIFT RN. PT IS IN STABLE CONDITION.
--- NOTE | 2018-07-23 07:30 | NUR ---
PATIENT ASLEEP BUT AROUSABLE. PT ON 2L O2. NO S/S OF DISTRESS NOTED. NO ACTIVE COUGH AT THIS TIME. FALL PRECAUTIONS IN PLACE. WILL CONTINUE TO MONITOR
[2018-07-23 08:00] VITALS: BP 95/54
--- NOTE | 2018-07-23 08:00 | NUR ---
I GOT A CALL FROM [facility] STATED NEEDS THE INSURANCE CARD TO BE FAXED, FOR AUTHORIZATION. I ASKED THE PATIENT AND HE SAID HE DOESN'T HAVE IT WITH HIM. REQUESTED INSURANCE INFORMATION FROM ADMITTING [facility] [employer] [employer] #[phone] [facility] [phone] PROVIDED TO [facility] AT [place].
--- NOTE | 2018-07-23 08:45 | NUR ---
07/23/18 RD FOLLOW UP COMPLETED PLEASE REFER TO NUTRITION PROGRESS NOTE UNDER CARE ACTIVITY FOR ESTIMATED NUTRITION NEEDS. RD RECOMMENDATIONS: 1. CONTINUE CARDIAC DIET TOLERATED. 2. CONTINUE ENSURE MAX TID TOLERATED. 3. ENCOURAGE INCREASING PO DIET AND SUPPLEMENT INTAKE. 4. RD TO FOLLOW-UP 3-5 DAYS, MODERATE RISK. REYNALDO VARGAS, , RDN
[2018-07-23] MEDS: NICOTINE TRANSD SYS 14 MG/24 HR PATCH TD SCH (09:00)
[2018-07-23] MEDS: DOCUSATE SODIUM 250 MG GELCAP PO SCH (09:00)
[2018-07-23] MEDS: FUROSEMIDE 40 MG TAB PO SCH (09:00)
[2018-07-23] MEDS: LACTOBACILLUS RHAMNOSUS GG 1 EACH CAP PO SCH (09:31)
[2018-07-23] MEDS: GABAPENTIN 100 MG CAP PO SCH (09:32)
[2018-07-23] MEDS: FINASTERIDE 5 MG TAB PO SCH (09:32)
[2018-07-23] MEDS: SULFAMETH/TRIMETH DS 800/160MG 1 TAB PO SCH (09:32)
[2018-07-23] MEDS: MULTIVITAMIN/MINERALS 1 TAB PO SCH (09:32)
[2018-07-23] MEDS: LACTULOSE 20 GM/30 ML UDC PO SCH (09:32)
[2018-07-23] MEDS: FERROUS SULFATE 325 MG TABEC PO SCH (09:32)
[2018-07-23] MEDS: CYANOCOBALAMIN 100 MCG TAB PO SCH (09:32)
[2018-07-23] MEDS: TRIUMEQ 600-50-300 MG TAB PO SCH (09:33)
--- NOTE | 2018-07-23 09:45 | NUR ---
ADMINISTERED SCHEDULED MEDICATIONS. WOUND DRESSINGS CHANGED PER WOUND CARE NURSE'S RECOMMENDATIONS. PT TOLERATED WELL
[2018-07-23 11:12] LABS: BASOPHILS % (AUTO) 1.5 % (0.0-2.0); EOSINOPHILS % (AUTO) 1.3 % (0.0-4.0); HEMATOCRIT 39.6 % (36-52); HEMOGLOBIN 12.4 g/dL (12.0-18.0); LYMPHOCYTES # (AUTO) 0.8 K/uL (2.0-11.5); LYMPHOCYTES % (AUTO) 26.2 % (20.5-51.1); MEAN CORPUSCULAR HEMOGLOBIN 30 pg (27-31); MEAN CORPUSCULAR HGB CONC 31 g/dL (33-37); MEAN CORPUSCULAR VOLUME 96.4 fL (80-94); MONOCYTES # (AUTO) 0.5 K/uL (0.8-1.0); MONOCYTES % (AUTO) 15.7 % (1.7-9.3); NEUTROPHILS # (AUTO) 1.7 K/uL (1.8-7.7); NEUTROPHILS % (AUTO) 55.3 % (42.2-75.2); PLATELET COUNT (AUTO) 94 K/uL (140-450); RED CELL DISTRIBUTION WIDTH 17.4 % (11.6-13.7); WHITE BLOOD COUNT (AUTO) 3.1 K/uL (4.8-10.8)
[2018-07-23 11:35] LABS: ANION GAP 8.9 (8-16); CARBON DIOXIDE 28.2 mmol/L (21-32); CREATININE 1.4 mg/dL (0.7-1.3); POTASSIUM 4.1 mmol/L (3.5-5.1)
[2018-07-23 11:42] LABS: MAGNESIUM 2.2 mg/dL (1.8-2.4); PHOSPHORUS 3.8 mg/dL (2.5-4.9)
[2018-07-23] MEDS ORDERED: PIPER/TAZO 2.25GM/D5W PREMIX 50 ML IV SCH (12:00)
[2018-07-23] MEDS: VANCOMYCIN HCL 750 MG in DEXTROSE 5% 250 ML IV SCH (12:05)
[2018-07-23] MEDS: NACL 0.9% 1,000 ML IV SCH (12:21)
--- NOTE | 2018-07-23 12:58 | NUR ---
SVETLANA FROM [employer] CALLED BACK AND STATED SPOKE WITH PATIENT'S INSURANCE AND TOLD HER THE INSURANCE IS NOT CONTRACTED WITH [employer] THE GLAZE MIXER EDEL IS ON VACATION AND THE COLLEGE DIRECTORFLAP CURER IS NOT AVAILABLE AND THEY WILL CHECK IT TOMORROW TUESDAY .NOTIFIED DR GIANNI Strauss AND THE RESIDENT DR DUVAL .
[2018-07-23] MEDS: PIPER/TAZO 3.375GM/D5W PREMIX 50 ML IV SCH ×2 (15:22→20:39)
[2018-07-23 16:00] VITALS: BP 101/54
--- NOTE | 2018-07-23 16:00 | NUR ---
BED LINENS CHANGED. PATIENT PROVIDED WITH NEW GOWN.
[2018-07-23] MEDS: MORPHINE SULFATE 2 MG/ML SYR IVP PRN (17:45)
[2018-07-23] MEDS: HYDROcodone/APAP 7.5/325 MG 1 TAB PO PRN (19:01)
--- NOTE | 2018-07-23 19:30 | NUR ---
PATIENT ENDORSED TO METER ENGINEER NURSE. PATIENT ENDORSED IN STABLE CONDITION
--- NOTE | 2018-07-23 19:31 | NUR ---
RECEIVED REPORT FROM DAY SHIFT RN. PT IS A&OX4. ON NC 2L. RESPIRATIONS ARE EQUAL AND UNLABORED. HAS IV ON LAC 20 G IVF INFUSING PER ORDERS. L BKA. NON HEALING WOUND ON STUMP. DRESSING IS CLEAN DRY AND INTACT. L FA BOIL DRESSING CLEAN DRY AND INTACT. 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 ON FALL PROTOCOL. PT ON AIRBORNE ISOLATION FOR POSSIBLE R/O OF TB. PT AWARE. PLAN OF CARE DISCUSSED WITH PT. ALL SAFETY MEASURES ARE IN PLACE. CALL LIGHT WITHIN REACH. WILL CONTINUE TO MONITOR.
[2018-07-23] MEDS: QUEtiapine FUMARATE 25 MG TAB PO SCH (20:39)
[2018-07-23] MEDS: traZODone 50 MG TAB PO SCH (20:39)
--- NOTE | 2018-07-23 20:39 | NUR ---
DUE MEDICATIONS WERE ADMINISTERED. PT TOLERATED WELL. ALL NEEDS MET AT THIS TIME. CALL LIGHT WITHIN REACH.
--- NOTE | 2018-07-23 22:00 | NUR ---
PT RESTING COMFORTABLY IN BED. NO S/S OF DISTRESS. ALL NEEDS MET AT THIS TIME. CALL LIGHT WITHIN REACH.
[2018-07-23 23:37] VITALS: BP 107/55
--- NOTE | 2018-07-24 | NUR ---
VITAL SIGNS ARE WITHIN NORMAL LIMITS. ALL NEEDS MET AT THIS TIME. CALL LIGHT WITHIN REACH.
--- NOTE | 2018-07-24 02:00 | NUR ---
PT IS SLEEPING COMFORTABLY IN BED. NO S/S OF DISTRESS NOTED. ALL NEEDS MET AT THIS TIME. CALL LIGHT WITHIN REACH.
[2018-07-24] MEDS: PIPER/TAZO 3.375GM/D5W PREMIX 50 ML IV SCH ×3 (05:13→21:15)
--- NOTE | 2018-07-24 05:13 | NUR ---
ZOSYN NOW INFUSING PER ORDERS. ALL NEEDS MET AT THIS TIME. CALL LIGHT WITHIN REACH.
[2018-07-24] MEDS: HYDROcodone/APAP 7.5/325 MG 1 TAB PO PRN ×2 (05:19→09:45)
[2018-07-24 05:27] LABS: BASOPHILS % (AUTO) 1.2 % (0.0-2.0); EOSINOPHILS # (AUTO) 0.1 K/uL (0-0.4); EOSINOPHILS % (AUTO) 2.9 % (0.0-4.0); HEMATOCRIT 37.2 % (36-52); HEMOGLOBIN 11.7 g/dL (12.0-18.0); LYMPHOCYTES # (AUTO) 0.7 K/uL (2.0-11.5); LYMPHOCYTES % (AUTO) 28.6 % (20.5-51.1); MEAN CORPUSCULAR HEMOGLOBIN 30 pg (27-31); MEAN CORPUSCULAR HGB CONC 32 g/dL (33-37); MEAN CORPUSCULAR VOLUME 96.3 fL (80-94); MONOCYTES # (AUTO) 0.4 K/uL (0.8-1.0); MONOCYTES % (AUTO) 17.1 % (1.7-9.3); NEUTROPHILS # (AUTO) 1.2 K/uL (1.8-7.7); NEUTROPHILS % (AUTO) 50.2 % (42.2-75.2); PLATELET COUNT (AUTO) 88 K/uL (140-450); RED BLOOD CELL COUNT(AUTO) 3.86 MIL/uL (4.20-6.10); RED CELL DISTRIBUTION WIDTH 17.6 % (11.6-13.7); WHITE BLOOD COUNT (AUTO) 2.5 K/uL (4.8-10.8)
[2018-07-24 05:35] LABS: ANION GAP 8.6 (8-16); CARBON DIOXIDE 27.6 mmol/L (21-32); CREATININE 1.4 mg/dL (0.7-1.3); POTASSIUM 4.2 mmol/L (3.5-5.1)
[2018-07-24 05:38] LABS: PHOSPHORUS 3.7 mg/dL (2.5-4.9)
[2018-07-24] MEDS: BLOOD GLUCOSE MONITORING 1 DEV DEV FS SCH ×3 (05:51→21:00)
[2018-07-24] MEDS: VANCOMYCIN HCL 750 MG in DEXTROSE 5% 250 ML IV SCH (06:34)
[2018-07-24] MEDS: FAMOTIDINE 20 MG TAB PO SCH (06:34)
[2018-07-24] MEDS: ALBUTEROL SULFATE/IPRATROPIU 3 ML SOL IH SCH ×3 (07:06→19:40)
--- NOTE | 2018-07-24 07:14 | NUR ---
ENDORSED TO DAY SHIFT RN. PT IS IN STABLE CONDITION. CALL LIGHT WITHIN REACH.
--- NOTE | 2018-07-24 07:14 | NUR ---
RECEIVED PATIENT REPORT. PATIENT ASLEEP BUT AROUSABLE. NO S/S OF DISTRESS. PATIENT ON 2L O2 VIA NC. NO SOB. O2 SAT 94% AT THIS TIME. FALL PRECAUTIONS IN PLACE. WILL CONTINUE TO MONITOR
[2018-07-24 08:00] VITALS: BP 98/55
[2018-07-24] MEDS: NICOTINE TRANSD SYS 14 MG/24 HR PATCH TD SCH (09:00)
[2018-07-24] MEDS ORDERED: SULFAMETH/TRIMETH DS 800/160MG 1 TAB PO SCH (09:00)
[2018-07-24] MEDS: GABAPENTIN 100 MG CAP PO SCH (09:30)
[2018-07-24] MEDS: LACTULOSE 20 GM/30 ML UDC PO SCH (09:30)
--- NOTE | 2018-07-24 09:30 | NUR ---
ADMINISTERED DUE MEDICATIONS. PATIENT TOLERATED WELL.
[2018-07-24] MEDS: FERROUS SULFATE 325 MG TABEC PO SCH (09:31)
[2018-07-24] MEDS: LACTOBACILLUS RHAMNOSUS GG 1 EACH CAP PO SCH (09:31)
[2018-07-24] MEDS: FINASTERIDE 5 MG TAB PO SCH (09:31)
[2018-07-24] MEDS: MULTIVITAMIN/MINERALS 1 TAB PO SCH (09:31)
[2018-07-24] MEDS: CYANOCOBALAMIN 100 MCG TAB PO SCH (09:31)
[2018-07-24] MEDS: DOCUSATE SODIUM 250 MG GELCAP PO SCH (09:31)
[2018-07-24] MEDS: TRIUMEQ 600-50-300 MG TAB PO SCH (09:32)
--- NOTE | 2018-07-24 10:58 | NUR ---
CALLED INSURANCE, [facility] [employer], AND SPOKE WITH BECKY IN THE AUTHORIZATION DEPARTMENT PHONE [phone]. SHE SAID THEY ARE NOT CONTRACTED WITH [facility]. SHE SAID THEY ARE CONTRACTED WITH [facility] AND [facility]. OTHERWISE THEY CAN DO A ROLANDO. SHE SAID TO TRY THEIR CONTRACTED FACILITIES FIRST. I CALLED [facility] AND SPOKE WITH NOEMI NIELSEN. I CALLED [facility], AND SPOKE WITH BELKIS. FAXED INQUIRY TO HER AT [phone]. I SPOKE WITH MAY FROM [facility] AND SHE SAID IF THE INSURANCE WANTS TO DO AN ROLANDO, THE INSURANCE NEEDS TO CALL ILIANA AT [facility] AT [phone]. SHE SAID THE PATIENT WAS ACCEPTED, PENDING AUTHORIZATION.
[2018-07-24] MEDS ORDERED: ONDA2SOL45 IM/IVP (11:29)
[2018-07-24] MEDS ORDERED: GABA-636 PO (11:29)
[2018-07-24] MEDS ORDERED: DOCU-463 PO (11:29)
[2018-07-24] MEDS ORDERED: Vancomycin Per Pharmacy MC (11:29)
[2018-07-24] MEDS ORDERED: ACET-1182 PO (11:29)
[2018-07-24] MEDS ORDERED: PIPE1SOL IV (11:29)
[2018-07-24] MEDS ORDERED: FER325 PO (11:29)
[2018-07-24] MEDS ORDERED: D50SYR IVP (11:29)
[2018-07-24] MEDS ORDERED: MULT-1736 PO (11:29)
[2018-07-24] MEDS ORDERED: HUMSLIDE SUBQ (11:29)
[2018-07-24] MEDS ORDERED: CYAN100T65 PO (11:29)
[2018-07-24] MEDS ORDERED: FAMO20TA13 PO (11:29)
[2018-07-24] MEDS ORDERED: MORP2SOL18 IVP (11:29)
[2018-07-24] MEDS ORDERED: LACT10SO11 PO (11:29)
[2018-07-24] MEDS ORDERED: GLUC-805 FS (11:29)
[2018-07-24] MEDS ORDERED: LACT10CA PO (11:29)
[2018-07-24] MEDS ORDERED: ACET-9529 PO (11:29)
[2018-07-24] MEDS ORDERED: NICO14TD30 TD (11:29)
[2018-07-24] MEDS ORDERED: ALBU3SOL83 IH (11:42)
--- NOTE | 2018-07-24 11:52 | NUR ---
I CALLED BECKY AT [facility] AND TOLE HER THAT NO BEDS AT [facility] AND THAT I FAXED INQUIRY TO [facility]. SHE SAID SHE WOULD START THE PROCESS FOR ROLANDO AT [facility]. I CALLED MAY AT [facility] AND INFORMED HER. I THEN RECEIVED A CALL BACK FROM BECKY AND SHE FOUND OUT THAT THIS PATIENT'S INSPECTOR METAL FABRICATING IS DR. HENDRICKS AT [facility] AND BECKY WILL CALL USMAN AT [facility] AND SPEAK WITH HER ABOUT TRANSFER.
[2018-07-24] MEDS: NACL 0.9% 1,000 ML IV SCH (12:21)
--- NOTE | 2018-07-24 13:15 | NUR ---
I RECEIVED A CALL FROM TI FROM [facility], ADMITTING DEPT [phone]. HE SAID THAT DO NOT HAVE A CONTRACT WITH THE INSURANCE AND THAT THEY WOULD NEED AN AUTHORIZATION AND ROLANDO. I GAVE HIM THE PHONE NUMBER TO BECKY AT THE INSURANCE. I CALLED BECKY AND INFORMED HER WHAT HE SAID AND I GAVE HER THE PHONE NUMBER TO TI AT [facility] FOR HER TO CALL.
--- NOTE | 2018-07-24 13:42 | NUR ---
RETURNED TO PTS ROOM FOR [facility]N STILL ON PHONE PT DEFERS HHN AT THIS TIME
--- NOTE | 2018-07-24 14:50 | NUR ---
SPOKE WITH BECKY FROM INSURANCE. FAXED THE FACE SHEET AND ORDER TO HER AT [phone]. SHE SAID WHEN [facility] GETS A BED, USE ANY AMBULANCE TRANSPORT. SHE DOESN'T GIVE AUTH FOR TRANSPORT. [facility] SHOULD CALL THEM FOR AUTH.
--- NOTE | 2018-07-24 15:29 | NUR ---
SPOKE WITH BECKY FROM [facility] PLAN DIRECT. SHE SAID SHE SPOKE WITH [facility] AND THEY WILL BE LOOKING FOR A BED. CALLED [facility], TRANSFER CENTER, AND SPOKE WITH ÁNGELA. SHE SAID THAT THE INFORMATION WENT TO BED CONTROL. THEY WILL BE LOOKING FOR A TELEMETRY BED UNDER DR. YRIS STORY. I GAVE THEM THE NUMBER TO THE FLOOR TO CONTACT WHEN A BED BECOMES AVAILABLE. I INFORMED JUAN [employer] PROCESSOR NURSE.
--- NOTE | 2018-07-24 19:35 | NUR ---
RECEIVED BEDSIDE REPORT FROM AM SHIFT RN. PT IS [id number], ON 2L O2 NC. IV SITE ON LEFT FA #20G, PATENT AND INTACT, RUNNING NS AT 20ML/HR. ON [place] PRECAUTIONS TO R/O TB, AND CONTACT PRECAUTIONS FOR MDRO URINE. POC DISCUSSED, PT VERBALIZED UNDERSTANDING. SKIN NON-INTACT, LEFT THIGH, LEFT BKA, LEFT FA BOIL OPEN WOUNDS. BED IN LOWEST POSITION, BED BREAKS ON, BOTH SIDE RAILS UP AND FALL PRECAUTIONS IN PLACE. BEDSIDE TABLE AND CALL LIGHT ARE WITHIN REACH. WILL CONTINUE TO MONITOR.
[2018-07-24 20:37] VITALS: BP 103/66
[2018-07-24] MEDS: QUEtiapine FUMARATE 25 MG TAB PO SCH (20:58)
[2018-07-24] MEDS: traZODone 50 MG TAB PO SCH (20:58)
[2018-07-24] MEDS: MORPHINE SULFATE 2 MG/ML SYR IVP PRN (21:06)
[2018-07-24] MEDS ORDERED: ASPI-1718 PO (21:16)
--- NOTE | 2018-07-24 21:48 | NUR ---
PATIENT WAS TAKEN OUT OF THE UNIT BY TWO [facility] PERSONNEL. PATIENT BELONGINGS RETURNED, IV ON LEFT AC HEPLOCKED. INTACT, PATENT, NO S/SX OF SWELLING, INFECTION, REDNESS NOTED. PATIENT TAKEN TO HIGHER LEVEL OF CARE. PATIENT STABLE UPON DISCHARGE.
--- NOTE | 2018-08-01 09:20 | NUR ---
PER REQUEST OF JACKIE CULVER, [facility], FAXED PATHOLOGY REPORT TO HER AT [phone] PHONE [phone].
== END 2018-07-24 22:06 | disposition short-term general hospital (02) | DRG 177 ==
LOC: MED 15:37 → MTU 17:58
PROVIDERS: ADMIT General Practice; ATTEND General Practice
PROC: 0BBC3ZX Excision of Right Upper Lung Lobe, Percutaneous Approach, Diagnostic (ICD-10-PCS; principal; 2018-07-19)
DX: J69.0 Pneumonitis due to inhalation of food and vomit (principal); N17.0 Acute kidney failure with tubular necrosis; E43 Unspecified severe protein-calorie malnutrition; G08 Intracranial and intraspinal phlebitis and thrombophlebitis; I50.43 Acute on chronic combined systolic (congestive) and diastolic (congestive) heart failure; B20 Human immunodeficiency virus [HIV] disease; C34.11 Malignant neoplasm of upper lobe, right bronchus or lung; R04.2 Hemoptysis; Z68.1 Body mass index [BMI] 19.9 or less, adult; C34.90 Malignant neoplasm of unspecified part of unspecified bronchus or lung; J44.0 Chronic obstructive pulmonary disease with (acute) lower respiratory infection; I24.9 Acute ischemic heart disease, unspecified; I48.92 Unspecified atrial flutter; I38 Endocarditis, valve unspecified; F29 Unspecified psychosis not due to a substance or known physiological condition; E11.40 Type 2 diabetes mellitus with diabetic neuropathy, unspecified; K21.9 Gastro-esophageal reflux disease without esophagitis; D69.6 Thrombocytopenia, unspecified; Z87.891 Personal history of nicotine dependence; E11.22 Type 2 diabetes mellitus with diabetic chronic kidney disease; E11.51 Type 2 diabetes mellitus with diabetic peripheral angiopathy without gangrene; H54.61 Unqualified visual loss, right eye, normal vision left eye; I25.10 Atherosclerotic heart disease of native coronary artery without angina pectoris; I25.2 Old myocardial infarction; I50.9 Heart failure, unspecified; N18.9 Chronic kidney disease, unspecified; Z89.512 Acquired absence of left leg below knee; Z95.0 Presence of cardiac pacemaker; D64.9 Anemia, unspecified; K73.9 Chronic hepatitis, unspecified; E86.0 Dehydration; G25.81 Restless legs syndrome; F32.9 Major depressive disorder, single episode, unspecified; G47.00 Insomnia, unspecified; I35.0 Nonrheumatic aortic (valve) stenosis; G89.4 Chronic pain syndrome
CPT/HCPCS: 36415; 71045; 71250; 77012; 80048; 80053; 80202; 80305; 81001; 82607; 82728; 82746; 82948; 83036; 83540; 83605; 83735; 83880; 84100; 84436; 84443; 84479; 84484; 85025; 85045; 85610; 85730; 86360; 86704; 86706; 86708; 86709; 86803; 86886; 86900; 86901; 87040; 87070; 87081; 87086; 87116; 87186; 87190; 87205; 87206; 87340; 87804; 88305; 89220; 93005; 93970; 94640; 96365; 99285; J1815; J1956; J2001; J2250; J2270; J2543; J3010; J3370; J7030; J7060; J7620; Q0092